=== PATIENT | male | born 1995 | race Asian ===

== ENCOUNTER 2019-06-22 19:55 | Emergency (ER) | payer OTHER ==
[~2019-06-22] VITALS: Ht 177.8 cm; Wt 63.5 kg
[2019-06-22 20:34] LABS: ABSOLUTE BASOPHILS 0.1 thou/uL (0.0-0.2); ABSOLUTE EOSINOPHILS 0.1 thou/uL (0.0-0.7); ABSOLUTE LYMPHOCYTES 1.6 thou/uL (0.8-5.3); ABSOLUTE MONOCYTES 0.5 thou/uL (0.0-1.2); ABSOLUTE NEUTROPHILS 4.5 thou/uL (1.6-8.1); BASOPHILS 0.9 %; HEMATOCRIT 42.7 % (42.0-52.0); HEMOGLOBIN 14.5 gm/dL (14.0-18.0); LYMPHOCYTES 24.4 %; MCV 91.2 fL (80.0-100.0); MONOCYTES 7.5 %; MPV 8.5 fl. (7.2-11.1); NUCLEATED RBCS 0 /100WBC; PLATELET COUNT* 263 thou/uL (150-400); POLYS 66.2 %; RBC 4.68 mil/uL (4.50-6.00); RDW-CV 12.5 % (10.5-14.5); WBC 6.7 thou/uL (4.0-11.0)
[2019-06-22 20:49] LABS: ANION GAP 13 mmol/L (7-16); BUN 11 mg/dL (7-18); CALCIUM 9.6 mg/dL (8.5-10.1); CHLORIDE 102 mmol/L (98-107); CO2 24 mmol/L (21-32); CREATININE 1.2 mg/dL (0.6-1.3); GLUCOSE 98 mg/dL (70-99); POTASSIUM 3.3 mmol/L (3.5-5.1); SODIUM 139 mmol/L (136-145)
[2019-06-22 20:54] LABS: ALBUMIN 4.7 g/dL (3.4-5.0); ALKALINE PHOSPHATASE 74 U/L (46-116); LIPASE 93 U/L (73-393); NT-PRO BRAIN NAT PEPTIDE < 5 pg/mL (<300); SGOT 15 U/L (15-37); SGPT 18 U/L (30-65); TOTAL BILIRUBIN 2.1 mg/dL (<0.1-1.0); TOTAL PROTEIN 8.6 g/dL (6.4-8.2)
[2019-06-22] MEDS ORDERED: TRAMADOL 50 MG50 MG PO (21:11)
[2019-06-22] MEDS ORDERED: IBUPROFEN200 MG PO (21:11)
[2019-06-22 21:29] VITALS: BP 108/70
--- NOTE | 2019-06-23 12:52 | EKG ---
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: : 1995 Requested By: Kenrick Shaffer Order Number: [id number] MD: Chay Machuca Measurements Intervals [place] Rate: 95 P: 0 IN: 143 QRS: -33 QRSD: 92 T: 44 QT: 361 QTc: 454 Interpretive Statements Sinus rhythm Left axis deviation RSR' in V1 or V2, probably normal variant ST elev, probable normal early repol pattern Artifact in lead(s) I,II,aVR,aVF,V1,V2,V3,V4,V5,V6 and baseline wander in lead (s) III,aVL No previous ECG available for comparison Electronically Signed On 06-23-2019 12:51:48 [employer] by Chay Machuca [email or web address] <ELECTRONICALLY SIGNED> By: Chay Machuca MD, FACC 06/23/19 1251 03 03 Chay Machuca MD, FACC /EPI
--- NOTE | 2019-06-23 12:53 | EKG ---
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 ESTEVEZ : 1995 Requested By: Kenrick Shaffer Order Number: [id number] Lucille MD: Chay Machuca Measurements Intervals [place] Rate: 85 P: 74 IA: 128 QRS: 0 QRSD: 97 T: 58 QT: 361 QTc: 430 Interpretive Statements Sinus rhythm Indeterminate axis RSR' in V1 or V2, probably normal variant ST elev, probable normal early repol pattern Baseline wander in lead(s) II,III,aVF No previous ECG available for comparison Electronically Signed On 06-23-2019 12:53:31 [employer] by Chay Machuca [email or web address] <ELECTRONICALLY SIGNED> By: Chay Machuca MD, [facility] 06/23/19 1253 00 00 Chay Machuca MD, [facility] /EPI
== END 2019-06-22 21:32 | disposition home or self-care (01) ==
LOC: M.ERS 19:55
PROVIDERS: Emergency Medicine
DX: R07.9 Chest pain, unspecified (principal); R10.9 Unspecified abdominal pain